=== PATIENT | male | born 1990 | race Caucasian/White ===

== ENCOUNTER 2020-01-18 03:35 | Emergency (ER) | payer OTHER ==
[2020-01-18 03:42] VITALS: BP 136/88; PULSE 121; TEMP 98; BMI 27.0
--- NOTE | 2020-01-18 03:46 | PDOC ---
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 States fall was mechanical and denies any preceding symptoms, was able to pick himself up and walk around since the incident. Last Tdap 1 year ago. Denies any other injuries, no known foreign bodies to scrapes. Past History - Medical History Allergies/Adverse Reactions: Allergies Allergy/AdvReac Type Severity Reaction Status Date / Time morphine Allergy Verified 07/21/19 18:27 Home Medications: Ambulatory Orders NK [No Known Home Medication] 07/21/19 COPD: No - Psycho-Social/Smoking History Smoking History: Never smoked Review of Systems - Review of Systems Able to Perform ROS?: Yes Comments:: 01/18/20 03:39 GEN: no fever, chills, generalized weakness, or malaise HEENT: no ear pain, eye pain, throat pain or swelling, nosebleed, vision change, or loose teeth SKIN: abrasions, no lacerations or bruises CV: no chest pain, palpitations, or LOC RESP: no cough or SOB GI: no abdominal pain, nausea, vomiting, or black/bloody stool : no hematuria or flank pain/bruising MSK: no muscle weakness, muscle pain, joint pain, or joint swelling NECK/BACK: no neck pain, back pain, or trauma reported NEURO: no headache, seizure, numbness, tingling, focal weakness, or incontinence PSYCH: no suicidality, homicidality, or substance use *Physical Exam - Physical Exam 01/18/20 03:40 GENERAL: nontoxic and well-appearing, A/Ox4, no distress, answers questions appropriately, fit, in [employer] uniform HEENT: PERRLA, EOMI, moist mucous membranes NECK/BACK: no midline ttp, no spinal step-off or deformity, no hematoma, full ROM, neck supple CARDIOVASCULAR: regular rate/rhythm, no MGR, strong peripheral pulses, capillary refill <2 seconds, extremities wwp, no edema LUNGS/RESPIRATORY: no respiratory distress, CTAB GI/ABDOMEN: symmetric [id number], normoactive BS, soft, no ttp, no midline pulsatile masses : no CVA tenderness MSK/EXTREMITIES: BUE with superficial abrasions scattered along FA, no lacerations, no obvious FBs, no muscle atrophy, no acute deformity SKIN: warm and dry, no pallor, no jaundice, no rash, no pathologic-appearing bruising, no skin breakdown, no cuts, no lesions NEUROLOGICAL: GCS 15, CN II-XII grossly intact, 5/5 strength proximally and distally, no facial droop Medical Decision Making - Medical Decision Making 01/18/20 03:51 29YOM p/w abrasions following pursuit of a suspect while on the job for [employer]. Initial Vital Signs Temp Pulse Resp BP Pulse Ox 98 F 121 H 18 136/88 95 01/18/20 03:39 01/18/20 03:39 01/18/20 03:39 01/18/20 03:39 01/18/20 03:39 Patient states was running around over the past hour to explain his RHR. Most likely simple abrasions without repairable laceration, unlikely FB or other contamination, patient denies exposure to any body fluids from perp or others. Very unlikely any more serious injury, patient has no knee tenderness to palpation and no pain on ROM or weight bearing. He is appropriate for DC home with close OP follow up and Occ Med clearance at [employer]. Work note given, specific return precautions discussed. Discharge - Discharge Information Problems reviewed: Yes Clinical Impression/Diagnosis: Abrasions of multiple sites Condition: Stable Disposition: HOME - Admission No - Follow up/Referral Referrals: ON STAFF,NOT [Non Staff, Medical] - - Patient Discharge Instructions Additional Instructions: You were seen in the ER for skin tears following a work-related injury. We cleaned and dressed your wounds, and made sure your tetanus vaccination was up to date (it already was), and we believe you are safe to go home at this time. Please follow up with your PCP and also with Occupational Medicine at your work. Your knee will likely be sore over the next few days, so you should stay home from work until at least Sunday. Use rest, ice, compression, and elevation for the knee. Use antibiotic ointment on all of the skin scrapes and tears. Come back to the ER for any signs of infection like worsening pain, redness, or pus drainage. For mild-moderate pain, use the following regimen of Tylenol and Motrin at home: When you get home, take Tylenol 650 mg. 3 hours later, take Motrin 600 mg. 3 hours later, take Tylenol 650 mg. 3 Hours later, take Motrin 600 mg. Etc. - Post Discharge Activity Work/Back to School Note: Back to Work
== END 2020-01-18 04:09 | disposition home or self-care (01) ==
LOC: FER 03:35
DX: S40.811A Abrasion of right upper arm, initial encounter (principal); S40.812A Abrasion of left upper arm, initial encounter
CPT/HCPCS: 80307; 99282-25

== ENCOUNTER 2020-06-09 17:51 | Emergency (ER) | payer BC, OTHER ==
[2020-06-09 18:05] VITALS: BP 144/69; PULSE 104; TEMP 97.7; BMI 26.4
[2020-06-09] MEDS ORDERED: ALBUTEROL SO4 HFA INHALER IH ONE ×2 (18:26→18:48)
[2020-06-09 19:25] LABS: BASO % 0.3 % (0-2.0); EOS % 1.5 % (0-4.5); HEMATOCRIT 42.2 % (35.4-49); HEMOGLOBIN 14.4 GM/dL (11.7-16.9); LYMPH % 22.4 % (8-40); MCH 31.8 pg (25.7-33.7); MCHC 34.2 g/dl (32.0-35.9); MEAN PLT VOLUME 8.7 fl (7.5-11.1); NEUT % 67.8 % (42.8-82.8); PLATELET COUNT 261 K/MM3 (134-434); RBC 4.54 M/mm3 (4.00-5.60); RDW 12.2 % (11.9-15.9); WHITE BLOOD COUNT 6.5 K/mm3 (4.0-10.0)
[2020-06-09 19:31] LABS: INR 0.96 (0.83-1.09); PROTHROMBIN TIME (PATIENT) 11.8 SEC (9.7-13.0)
[2020-06-09 19:50] LABS: CHLORIDE 105 mmol/L (98-107); POTASSIUM 4.3 mmol/L (3.5-5.1); SODIUM 139 mmol/L (136-145)
[2020-06-09 19:52] LABS: CALCIUM 8.7 mg/dL (8.5-10.1)
[2020-06-09 19:53] LABS: ANION GAP 5 MMOL/L (8-16); CO2 30 mmol/L (21-32); GLUCOSE,RANDOM 137 mg/dL (74-106)
[2020-06-09 19:56] LABS: CREATININE 1.3 mg/dL (0.55-1.3); SGOT/AST 18 U/L (15-37); SGPT/ALT 27 U/L (13-61)
[2020-06-09 19:58] LABS: ALK PHOS 68 U/L (45-117); BILIRUBIN,TOTAL 0.4 mg/dL (0.2-1); TOT PROT 7.3 g/dl (6.4-8.2)
== END 2020-06-09 22:29 | disposition home or self-care (01) ==
LOC: JER 17:51 → JCOVINFU 17:51
DX: R07.89 Other chest pain (principal)
CPT/HCPCS: 36415; 71046-TC-FY; 71275-TC; 80053; 82550; 82553; 84484; 85025; 85379; 85610; 86769; 93005; 93010; G2012-GT; Q9967